=== PATIENT | male | born 1955 | race Caucasian/White ===

== ENCOUNTER 2017-02-08 12:45 | Emergency (ER) | payer MEDICARE ==
[~2017-02-08] VITALS: Ht 172.7 cm; Wt 90.7 kg
[~2017-02-08 12:45] MED LIST: ANUSOL-HC25 MG RC; BAYER ASPIRIN C81 MG PO; FLUTICASON0.05 MG/AC NAS; LEVAQUIN750 M1 PO; LISINOPRIL10 MG PO; MEDROL DOSEPAK4 MG PO; METOPROLOL SUCC25 M2 PO; MOTRIN800 MG PO; NORFLEX100 MG PO; PERCOCET 325 MG1 TA2 PO; PRAVASTATIN SOD40 MG PO; PREDNISONE10 MG PO; TRAMADOL HCL50 MG PO; VICODIN 500 MG-1 TAB PO; VITAMIN D1000 IU PO; VITAMIN D50000 I3 PO; Vicodin 5/500 505 MG PO
== END 2017-02-08 13:08 | disposition home or self-care (01) ==
LOC: ED 12:45
DX: S30.861A Insect bite (nonvenomous) of abdominal wall, initial encounter (principal); S70.362A Insect bite (nonvenomous), left thigh, initial encounter; F17.200 Nicotine dependence, unspecified, uncomplicated; E11.9 Type 2 diabetes mellitus without complications; I10 Essential (primary) hypertension; E78.00 Pure hypercholesterolemia, unspecified; G47.30 Sleep apnea, unspecified; Z79.899 Other long term (current) drug therapy; Z98.890 Other specified postprocedural states; Z90.49 Acquired absence of other specified parts of digestive tract; W57.XXXA Bitten or stung by nonvenomous insect and other nonvenomous arthropods, initial encounter; Y93.89 Activity, other specified; Y92.89 Other specified places as the place of occurrence of the external cause; Y99.9 Unspecified external cause status

== ENCOUNTER 2018-04-18 08:50 | Emergency (ER) | payer MEDICARE ==
[~2018-04-18] VITALS: Ht 172.7 cm; Wt 81.6 kg
[2018-04-18] MEDS ORDERED: BAYER ASPIRIN C81 MG PO (08:53)
== END 2018-04-18 10:47 | disposition home or self-care (01) ==
LOC: ED 08:50
DX: S66.912A Strain of unspecified muscle, fascia and tendon at wrist and hand level, left hand, initial encounter (principal); F17.200 Nicotine dependence, unspecified, uncomplicated; Z79.899 Other long term (current) drug therapy; Z79.82 Long term (current) use of aspirin; X58.XXXA Exposure to other specified factors, initial encounter; Y93.89 Activity, other specified; Y92.89 Other specified places as the place of occurrence of the external cause; Y99.8 Other external cause status

== ENCOUNTER 2020-10-23 13:45 | Emergency (ER) | payer MEDICARE ==
[~2020-10-23] VITALS: Ht 172.7 cm; Wt 79.4 kg
[~2020-10-23 13:45] MED LIST changes: +LISINOPRIL10 M1 PO
== END 2020-10-23 17:20 | disposition left against medical advice (07) ==
LOC: ED 13:45
DX: M25.512 Pain in left shoulder (principal); Z53.21 Procedure and treatment not carried out due to patient leaving prior to being seen by health care provider

== ENCOUNTER → 2020-10-24 | Outpatient (CLI) | payer MEDICARE | END | disposition home or self-care (01) | LOC: RAD 10:52 | PROVIDERS: ATTEND Nurse Practitioner Family | DX: M75.52 Bursitis of left shoulder (principal) ==

== ENCOUNTER → 2021-01-21 | Outpatient (CLI) | payer MEDICARE | END | disposition home or self-care (01) | LOC: RAD 14:10 | PROVIDERS: ATTEND Nurse Practitioner Family | DX: M11.221 Other chondrocalcinosis, right elbow (principal); M25.421 Effusion, right elbow; M79.601 Pain in right arm; M25.621 Stiffness of right elbow, not elsewhere classified ==

== ENCOUNTER → 2021-03-04 | Outpatient (CLI) | payer MEDICARE | END | disposition home or self-care (01) | LOC: US 02-06 13:30 | PROVIDERS: ATTEND Nurse Practitioner Family | DX: M25.621 Stiffness of right elbow, not elsewhere classified (principal); M79.601 Pain in right arm ==

== ENCOUNTER → 2021-08-09 | Outpatient (CLI) | payer MEDICARE | END | disposition home or self-care (01) | LOC: RAD 11:38 | PROVIDERS: ATTEND Nurse Practitioner Family | DX: M50.322 Other cervical disc degeneration at C5-C6 level (principal); M18.12 Unilateral primary osteoarthritis of first carpometacarpal joint, left hand; M25.512 Pain in left shoulder; M79.645 Pain in left finger(s) ==

== ENCOUNTER 2021-08-25 23:15 | Emergency (ER) | payer MEDICARE ==
[~2021-08-25] VITALS: Ht 172.7 cm; Wt 77.1 kg
== END 2021-08-26 00:02 | disposition home or self-care (01) ==
LOC: ED 23:15
DX: G89.29 Other chronic pain (principal); M25.512 Pain in left shoulder; F17.200 Nicotine dependence, unspecified, uncomplicated; Z79.899 Other long term (current) drug therapy; Z79.82 Long term (current) use of aspirin

== ENCOUNTER → 2022-05-09 | Outpatient (CLI) | payer MEDICARE ==
[2022-05-09 14:57] LABS: HEMATOCRIT 41.1 % (42.0-52.0); MEAN CELL VOLUME 82.4 fl (80.0-94.0); MEAN CORPUSCULAR HGB 26.7 pg (27.0-31.0); MEAN CORPUSCULAR HGB CONC 32.4 g/dl (33.0-37.0); MEAN PLATELET VOLUME 9.1 fl (9.6-12.3); RED BLOOD COUNT 4.99 10*6/uL (4.50-5.90); RED CELL DISTRI WIDTH 14.6 % (0-14.5); WHITE BLOOD COUNT 9.1 10*3/uL (4.8-10.8)
[2022-05-09 15:21] LABS: BUN 15 mg/dl (7-24); CHLORIDE 105 mmol/L (98-107); CHOLESTEROL 130 mg/dL (<200); CREATININE 0.87 mg/dL (0.70-1.30); POTASSIUM 4.1 mmol/L (3.5-5.1); SGOT/AST 10 IU/L (3-35); SGPT/ALT 14 U/L (12-78); SODIUM 135 mmol/L (136-145); TRIGLYCERIDES 92 mg/dl (<150)
[2022-05-09 15:28] LABS: ALKALINE PHOSPHATASE 91 U/L (45-117); CPK 18 U/L (39-308); FREE T4 1.16 ng/dl (0.76-1.46); LDL CHOLESTEROL 78 mg/dL (9-159); TOTAL PROTEIN 8.3 gm/dL (6.4-8.2)
[2022-05-09 16:28] LABS: VITAMIN D, 25-HYDROXY 59.6 ng/mL (30-100)
[2022-05-10 08:07] LABS: HBSAG Negative (Negative); HEP B CORE AB, IGM Negative (Negative); HEPATITIS C ANTIBODY 0.1 (0.0-0.9)
[2022-05-10 09:06] LABS: RHEUMATOID FACTOR 150.8 IU/mL (<14.0)
== END | disposition home or self-care (01) ==
LOC: LAB 14:21
PROVIDERS: ATTEND Family Medicine
DX: E78.00 Pure hypercholesterolemia, unspecified (principal); R53.83 Other fatigue; M79.10 Myalgia, unspecified site; R63.4 Abnormal weight loss; M19.90 Unspecified osteoarthritis, unspecified site; Z12.5 Encounter for screening for malignant neoplasm of prostate; E55.9 Vitamin D deficiency, unspecified; Z79.899 Other long term (current) drug therapy

== ENCOUNTER → 2022-05-15 | Outpatient (CLI) | payer MEDICARE | END | disposition home or self-care (01) | LOC: LAB 16:06 | PROVIDERS: ATTEND Family Medicine | DX: M05.9 Rheumatoid arthritis with rheumatoid factor, unspecified (principal); M25.50 Pain in unspecified joint ==

== ENCOUNTER 2022-06-13 03:59 | Emergency (ER) | payer MEDICARE ==
[~2022-06-13] VITALS: Ht 172.7 cm; Wt 68.0 kg
[2022-06-13 04:41] LABS: BILIRUBIN Negative (Negative); BLOOD Negative (Negative); CLARITY Clear (Clear); COLOR Yellow (Yellow); GLUCOSE Negative (Negative); KETONE Negative (Negative); LEUKO ESTERASE Negative (Negative); NITRITE Negative (Negative); SPECIFIC GRAVITY 1.015 (1.001-1.030)
[2022-06-13 04:43] LABS: BASO # 0.1 10*3/uL (0.0-0.1); BASO % 0.6 % (0.0-1.0); EOS # 0.1 10*3/uL (0.0-0.4); EOS % 0.9 % (1.0-4.0); LYMPH # 2.9 10*3/uL (1.3-4.4); LYMPH % 31.9 % (27.0-41.0); MEAN CELL VOLUME 84.3 fl (80.0-94.0); MEAN CORPUSCULAR HGB 28.2 pg (27.0-31.0); MEAN CORPUSCULAR HGB CONC 33.5 g/dl (33.0-37.0); MEAN PLATELET VOLUME 8.9 fl (9.6-12.3); MONO # 0.9 10*3/uL (0.1-1.0); NEUT % 56.3 % (47.0-73.0); PLATELET COUNT AUTOMATED 307 10*3/uL (130-400); WHITE BLOOD COUNT 8.9 10*3/uL (4.8-10.8)
[2022-06-13] MEDS ORDERED: CYCLOBENZAPRINE10 MG PO (04:53)
[2022-06-13] MEDS ORDERED: IBUPROFEN600 MG PO (04:53)
[2022-06-13 04:56] LABS: RBC 0-2 rbc/hpf (0-2); WBC 0-2 wbc/hpf (0-5)
[2022-06-13 04:59] LABS: ALKALINE PHOSPHATASE 91 U/L (45-117); BUN 15 mg/dl (7-24); CHLORIDE 104 mmol/L (98-107); CREATININE 0.86 mg/dL (0.70-1.30); POTASSIUM 4.1 mmol/L (3.5-5.1); SGOT/AST 7 IU/L (3-35); SGPT/ALT 13 U/L (12-78); SODIUM 135 mmol/L (136-145); TOTAL PROTEIN 7.5 gm/dL (6.4-8.2)
== END 2022-06-13 05:16 | disposition home or self-care (01) ==
LOC: ED 03:59
PROVIDERS: Emergency Medicine
DX: M54.9 Dorsalgia, unspecified (principal); Z79.899 Other long term (current) drug therapy; Z79.82 Long term (current) use of aspirin; Z90.49 Acquired absence of other specified parts of digestive tract; Z90.89 Acquired absence of other organs; Z87.891 Personal history of nicotine dependence

== ENCOUNTER → 2022-08-06 | Outpatient (CLI) | payer MEDICARE ==
[~2022-08-06] MED LIST changes: +CYCLOBENZAPRINE10 MG PO; +IBUPROFEN600 MG PO
[2022-08-06 13:42] LABS: BASO # 0.1 10*3/uL (0.0-0.1); BASO % 0.4 % (0.0-1.0); EOS # 0.1 10*3/uL (0.0-0.4); EOS % 0.5 % (1.0-4.0); HEMATOCRIT 49.4 % (42.0-52.0); LYMPH # 2.7 10*3/uL (1.3-4.4); LYMPH % 23.9 % (27.0-41.0); MEAN CELL VOLUME 87.9 fl (80.0-94.0); MEAN CORPUSCULAR HGB 29.4 pg (27.0-31.0); MEAN CORPUSCULAR HGB CONC 33.4 g/dl (33.0-37.0); MEAN PLATELET VOLUME 9.4 fl (9.6-12.3); MONO % 8.5 % (3.0-9.0); NEUT # 7.5 10*3/uL (2.3-7.9); NEUT % 66.1 % (47.0-73.0); PLATELET COUNT AUTOMATED 349 10*3/uL (130-400); RED BLOOD COUNT 5.62 10*6/uL (4.50-5.90); RED CELL DISTRI WIDTH 17.2 % (0-14.5); WHITE BLOOD COUNT 11.3 10*3/uL (4.8-10.8)
[2022-08-06 13:59] LABS: ALKALINE PHOSPHATASE 88 U/L (45-117); BUN 18 mg/dl (7-24); CHLORIDE 108 mmol/L (98-107); CREATININE 0.86 mg/dL (0.70-1.30); POTASSIUM 3.8 mmol/L (3.5-5.1); SGOT/AST 8 IU/L (3-35); SGPT/ALT 13 U/L (12-78); SODIUM 140 mmol/L (136-145); TOTAL PROTEIN 8.1 gm/dL (6.4-8.2)
[2022-08-06 14:01] LABS: FREE T4 1.15 ng/dl (0.76-1.46)
[2022-08-06 14:06] LABS: THYROID STIM HORMONE (HS) 1.84 uIU/ml (0.358-4.75)
[2022-08-06 14:30] LABS: VITAMIN D, 25-HYDROXY 41.8 ng/mL (30-100)
[2022-08-07 08:07] LABS: VARICELLA-ZOSTER IGG 1480 index (Immune >165)
[2022-08-07 13:06] LABS: ANGIOTENSIN-CONVERTING ENZYME 19 U/L (14-82)
[2022-08-07 16:08] LABS: ATYPICAL PANCA <1:20 titer (Neg:<1:20)
[2022-08-09 19:06] LABS: TESTOSTERONE FREE, (DIRECT) 8.1 pg/mL (6.6-18.1)
== END | disposition home or self-care (01) ==
LOC: LAB 12:16
PROVIDERS: Family Medicine
DX: E78.00 Pure hypercholesterolemia, unspecified (principal); E55.9 Vitamin D deficiency, unspecified; I70.0 Atherosclerosis of aorta; H15.002 Unspecified scleritis, left eye; Z12.5 Encounter for screening for malignant neoplasm of prostate; R63.5 Abnormal weight gain; R53.83 Other fatigue; R91.8 Other nonspecific abnormal finding of lung field

== ENCOUNTER → 2022-10-21 | Outpatient (CLI) | payer MEDICARE | END | disposition home or self-care (01) | LOC: RAD 14:17 | PROVIDERS: ATTEND Internal Medicine Rheumatology | DX: S32.030A Wedge compression fracture of third lumbar vertebra, initial encounter for closed fracture (principal); M48.061 Spinal stenosis, lumbar region without neurogenic claudication; M43.8X6 Other specified deforming dorsopathies, lumbar region; L00-L99 Diseases of the skin and subcutaneous tissue; L40.50 Arthropathic psoriasis, unspecified; M79.18 Myalgia, other site; X58.XXXA Exposure to other specified factors, initial encounter; Y93.89 Activity, other specified; Y92.89 Other specified places as the place of occurrence of the external cause ==

== ENCOUNTER 2022-10-27 10:54 | Emergency (ER) | payer MEDICARE ==
[~2022-10-27] VITALS: Ht 172.7 cm; Wt 68.0 kg
[2022-10-27 12:55] LABS: BASO # 0.1 10*3/uL (0.0-0.1); BASO % 0.3 % (0.0-1.0); EOS % 0.1 % (1.0-4.0); HEMATOCRIT 46.9 % (42.0-52.0); LYMPH # 2.8 10*3/uL (1.3-4.4); LYMPH % 15.8 % (27.0-41.0); MEAN CELL VOLUME 91.4 fl (80.0-94.0); MEAN CORPUSCULAR HGB CONC 33.9 g/dl (33.0-37.0); MEAN PLATELET VOLUME 9.1 fl (9.6-12.3); MONO # 1.1 10*3/uL (0.1-1.0); NEUT # 13.5 10*3/uL (2.3-7.9); NEUT % 76.7 % (47.0-73.0); PLATELET COUNT AUTOMATED 513 10*3/uL (130-400); RED BLOOD COUNT 5.13 10*6/uL (4.50-5.90); RED CELL DISTRI WIDTH 14.4 % (0-14.5); WHITE BLOOD COUNT 17.6 10*3/uL (4.8-10.8)
[2022-10-27 13:16] LABS: ALKALINE PHOSPHATASE 83 U/L (46-116); BUN 17 mg/dl (9-23); CHLORIDE 99 mmol/L (98-107); POTASSIUM 3.8 mmol/L (3.4-5.1); SGPT/ALT 12 U/L (10-49); TOTAL PROTEIN 7.3 gm/dL (6.0-8.0)
[2022-10-27] MEDS ORDERED: CITROMA296 ML PO (17:59)
== END 2022-10-27 18:21 | disposition home or self-care (01) ==
LOC: ED 10:54
PROVIDERS: Student in an Organized Health Care Education/Training Program
DX: K59.00 Constipation, unspecified (principal); K29.70 Gastritis, unspecified, without bleeding; I87.8 Other specified disorders of veins; Z90.49 Acquired absence of other specified parts of digestive tract; F17.200 Nicotine dependence, unspecified, uncomplicated; F10.90 Alcohol use, unspecified, uncomplicated

== ENCOUNTER → 2022-10-31 | Outpatient (CLI) | payer MEDICARE ==
[~2022-10-31] MED LIST changes: +CITROMA296 ML PO
[2022-10-31 13:08] LABS: BASO # 0.1 10*3/uL (0.0-0.1); BASO % 0.5 % (0.0-1.0); EOS # 0.1 10*3/uL (0.0-0.4); EOS % 0.4 % (1.0-4.0); LYMPH # 3.4 10*3/uL (1.3-4.4); MEAN CELL VOLUME 92.3 fl (80.0-94.0); MEAN CORPUSCULAR HGB CONC 33.6 g/dl (33.0-37.0); MEAN PLATELET VOLUME 9.4 fl (9.6-12.3); MONO # 1.2 10*3/uL (0.1-1.0); MONO % 7.1 % (3.0-9.0); NEUT # 12.1 10*3/uL (2.3-7.9); NEUT % 71.1 % (47.0-73.0); PLATELET COUNT AUTOMATED 468 10*3/uL (130-400); RED BLOOD COUNT 5.09 10*6/uL (4.50-5.90); WHITE BLOOD COUNT 16.9 10*3/uL (4.8-10.8)
[2022-10-31 13:24] LABS: ALKALINE PHOSPHATASE 84 U/L (46-116); BUN 8 mg/dl (9-23); CHLORIDE 100 mmol/L (98-107); POTASSIUM 3.7 mmol/L (3.4-5.1); SGPT/ALT 8 U/L (10-49); TOTAL PROTEIN 7.4 gm/dL (6.0-8.0)
[2022-11-01 05:06] LABS: TOTAL PROTEIN, SERUM 6.9 g/dL (6.0-8.5)
[2022-11-01 10:07] LABS: IMMUNOGLOBULIN G, QNT 1448 mg/dL (603-1613); IMMUNOGLOBULIN M, QNT 74 mg/dL (20-172)
[2022-11-03 14:07] LABS: ANGIOTENSIN-CONVERTING ENZYME 26 U/L (14-82)
[2022-11-03 15:07] LABS: A/G RATIO 0.6 (0.7-1.7); ALBUMIN 2.5 g/dL (2.9-4.4); ALPHA-1-GLOBULIN 0.5 g/dL (0.0-0.4); ALPHA-2-GLOBULIN 1.4 g/dL (0.4-1.0); BETA GLOBULIN 1.2 g/dL (0.7-1.3); GAMMA GLOBULIN 1.3 g/dL (0.4-1.8); GLOBULIN, TOTAL 4.4 g/dL (2.2-3.9); M-SPIKE Not Observed g/dL (Not Observed)
[2022-11-06 20:07] LABS: HLA-B27 ANTIGEN Negative (.)
== END | disposition home or self-care (01) ==
LOC: LAB 12:33
PROVIDERS: ATTEND Internal Medicine Rheumatology
DX: M54.50 Low back pain, unspecified (principal); L40.50 Arthropathic psoriasis, unspecified; M05.79 Rheumatoid arthritis with rheumatoid factor of multiple sites without organ or systems involvement; M53.3 Sacrococcygeal disorders, not elsewhere classified; M25.50 Pain in unspecified joint; Z79.52 Long term (current) use of systemic steroids; Z11.59 Encounter for screening for other viral diseases; Z51.81 Encounter for therapeutic drug level monitoring; Z79.899 Other long term (current) drug therapy

== ENCOUNTER → 2022-11-12 | Outpatient (CLI) | payer MEDICARE | END | disposition home or self-care (01) | LOC: US 02:48 | PROVIDERS: ATTEND Family Medicine | DX: K86.2 Cyst of pancreas (principal); K86.9 Disease of pancreas, unspecified ==

== ENCOUNTER 2022-11-18 00:24 | Emergency (ER) | payer MEDICARE ==
[~2022-11-18] VITALS: Ht 175.2 cm; Wt 63.8 kg
[2022-11-18] MEDS ORDERED: HYDROCODONE-AC1 EAC1 PO (00:58)
[2022-11-18] MEDS ORDERED: PREDNISONE5 MG PO (00:58)
[2022-11-18 01:00] LABS: HEMATOCRIT 41.3 % (42.0-52.0); MEAN CELL VOLUME 89.6 fl (80.0-94.0); MEAN CORPUSCULAR HGB 30.2 pg (27.0-31.0); MEAN CORPUSCULAR HGB CONC 33.7 g/dl (33.0-37.0); MEAN PLATELET VOLUME 8.9 fl (9.6-12.3); PLATELET COUNT AUTOMATED 491 10*3/uL (130-400); RED BLOOD COUNT 4.61 10*6/uL (4.50-5.90); RED CELL DISTRI WIDTH 13.5 % (0-14.5)
[2022-11-18 01:01] LABS: MANUAL DIFF REFLEX YES
[2022-11-18 01:11] LABS: ACT PARTIAL THROMBO TIME 25.9 SECONDS (20.0-32.1)
[2022-11-18 01:15] LABS: ALKALINE PHOSPHATASE 118 U/L (46-116); BUN 13 mg/dl (9-23); CHLORIDE 99 mmol/L (98-107); POTASSIUM 3.8 mmol/L (3.4-5.1); SGPT/ALT 25 U/L (10-49); TOTAL PROTEIN 7.1 gm/dL (6.0-8.0)
[2022-11-18 01:21] LABS: BASOPHILS 1 % (0-1); PLATELET SUFFICIENCY HIGH (NORMAL); TOTAL CELLS COUNTED 100 #CELLS
== END 2022-11-18 01:44 | disposition short-term general hospital (02) ==
LOC: ED 00:24
PROVIDERS: Emergency Medicine
DX: I21.3 ST elevation (STEMI) myocardial infarction of unspecified site (principal); E78.5 Hyperlipidemia, unspecified; Z79.899 Other long term (current) drug therapy; Z90.49 Acquired absence of other specified parts of digestive tract; Z90.89 Acquired absence of other organs; Z98.890 Other specified postprocedural states

== ENCOUNTER 2022-12-07 23:43 | Emergency (ER) | payer MEDICARE ==
[~2022-12-07] VITALS: Ht 172.7 cm; Wt 63.5 kg
[~2022-12-07 23:43] MED LIST changes: +HYDROCODONE-AC1 EAC1 PO; +PREDNISONE5 MG PO
[2022-12-08 00:36] LABS: BASO # 0.1 10*3/uL (0.0-0.1); BASO % 0.3 % (0.0-1.0); EOS % 0.1 % (1.0-4.0); HEMATOCRIT 31.1 % (42.0-52.0); LYMPH # 1.8 10*3/uL (1.3-4.4); LYMPH % 6.5 % (27.0-41.0); MEAN CELL VOLUME 87.1 fl (80.0-94.0); MEAN CORPUSCULAR HGB 28.9 pg (27.0-31.0); MEAN CORPUSCULAR HGB CONC 33.1 g/dl (33.0-37.0); MEAN PLATELET VOLUME 9.4 fl (9.6-12.3); MONO % 7.2 % (3.0-9.0); NEUT # 23.4 10*3/uL (2.3-7.9); NEUT % 83.7 % (47.0-73.0); PLATELET COUNT AUTOMATED 602 10*3/uL (130-400); RED BLOOD COUNT 3.57 10*6/uL (4.50-5.90); RED CELL DISTRI WIDTH 14.4 % (0-14.5); WHITE BLOOD COUNT 27.9 10*3/uL (4.8-10.8)
[2022-12-08 00:47] LABS: MANUAL DIFF REFLEX YES
[2022-12-08 00:49] LABS: BUN 18 mg/dl (9-23); CHLORIDE 101 mmol/L (98-107)
[2022-12-08 01:06] LABS: PLATELET SUFFICIENCY HIGH (NORMAL); TOTAL CELLS COUNTED 100 #CELLS
[2022-12-08 01:07] LABS: MICROCYTOSIS SLIGHT
[2022-12-08 02:54] LABS: BILIRUBIN Negative (Negative); BLOOD Negative (Negative); CLARITY Cloudy (Clear); COLOR Yellow (Yellow); GLUCOSE 2+ (Negative); KETONE Negative (Negative); LEUKO ESTERASE 1+ (Negative); NITRITE Negative (Negative); PH 5.5 (4.5-8.0)
[2022-12-08 03:04] LABS: EPITHELIAL CELLS 21-30
[2022-12-08 03:05] LABS: BACTERIA 1+; WBC 16-20 wbc/hpf (0-5)
[2022-12-08] MEDS ORDERED: CIPRO500 MG PO (03:30)
== END 2022-12-08 04:19 ==
LOC: ED 23:43
PROVIDERS: Internal Medicine
DX: N39.0 Urinary tract infection, site not specified (principal); R73.9 Hyperglycemia, unspecified; E83.42 Hypomagnesemia; D72.829 Elevated white blood cell count, unspecified; D64.9 Anemia, unspecified; D75.839 Thrombocytosis, unspecified; Z90.49 Acquired absence of other specified parts of digestive tract; Z98.890 Other specified postprocedural states; F17.200 Nicotine dependence, unspecified, uncomplicated; Z20.822 Contact with and (suspected) exposure to COVID-19

== ENCOUNTER → 2022-12-11 | Outpatient (CLI) | payer MEDICARE ==
[~2022-12-11] MED LIST changes: +CIPRO500 MG PO
[2022-12-11 16:18] LABS: MEAN CELL VOLUME 87.4 fl (80.0-94.0); MEAN CORPUSCULAR HGB 28.5 pg (27.0-31.0); MEAN CORPUSCULAR HGB CONC 32.6 g/dl (33.0-37.0); MEAN PLATELET VOLUME 9.5 fl (9.6-12.3); PLATELET COUNT AUTOMATED 705 10*3/uL (130-400); RED BLOOD COUNT 3.89 10*6/uL (4.50-5.90); RED CELL DISTRI WIDTH 14.7 % (0-14.5); RETICULOCYTE % 1.64 % (0.50-2.50); WHITE BLOOD COUNT 28.2 10*3/uL (4.8-10.8)
[2022-12-11 16:19] LABS: MANUAL DIFF REFLEX YES
[2022-12-11 16:36] LABS: ALKALINE PHOSPHATASE 206 U/L (46-116); BUN 23 mg/dl (9-23); CHLORIDE 100 mmol/L (98-107); FREE T4 0.95 ng/dl (0.89-1.76); SGPT/ALT 70 U/L (10-49); THYROID STIM HORMONE (HS) 3.662 uIU/ml (0.550-4.780); TOTAL PROTEIN 6.4 gm/dL (6.0-8.0)
[2022-12-11 16:37] LABS: VITAMIN D, 25-HYDROXY 84.6 ng/mL (30-100)
[2022-12-11 17:03] LABS: PLATELET SUFFICIENCY HIGH (NORMAL); TOTAL CELLS COUNTED 100 #CELLS
== END | disposition home or self-care (01) ==
LOC: LAB 15:30
PROVIDERS: Family Medicine; ATTEND Internal Medicine Hematology
DX: D75.839 Thrombocytosis, unspecified (principal); D72.823 Leukemoid reaction; E74.9 Disorder of carbohydrate metabolism, unspecified; E55.9 Vitamin D deficiency, unspecified; I25.10 Atherosclerotic heart disease of native coronary artery without angina pectoris; M79.10 Myalgia, unspecified site; R07.9 Chest pain, unspecified; D72.829 Elevated white blood cell count, unspecified; M79.605 Pain in left leg; M79.604 Pain in right leg; Z79.899 Other long term (current) drug therapy